=== PATIENT | female | born 1965 | race Caucasian/White ===

== ENCOUNTER → 2021-02-18 07:12 | Outpatient (CLI) | payer BC, SELFPAY ==
--- NOTE | ~2021-02-18 | MM_ITS ---
EXAMINATION: MM screening mahsa BI w jeremy HISTORY: Screening mammogram TECHNIQUE: Craniocaudal and mediolateral oblique 3-D tomosynthesis images were obtained and synthetic 2-D images were generated. CAD analysis was submitted and interpreted. COMPARISON: None, baseline BREAST PARENCHYMAL COMPOSITION: The breasts are heterogeneously dense, which may obscure small masses . FINDINGS: RIGHT BREAST: An asymmetry is present in the middle third of the slightly lower breast 3 cm from the nipple on the mediolateral oblique view. LEFT BREAST: An asymmetry is present in the posterior third of the slightly inner breast 4.5 cm from the craniocaudal view. IMPRESSION: 1. Bilateral breast asymmetries. 2. Additional mammographic views and possible breast ultrasound are recommended to evaluate for malig tamica and establish a baseline given that this is the first mammographic examination. BI-RADS Category 0: Incomplete: Needs additional imaging evaluation. Reviewed, dictated and finalized at location A. IMPRESSION: 1. Bilateral breast asymmetries. 2. Additional mammographic views and possible breast ultrasound are recommended to evaluate for malignancy and establish a baseline given that this is the fir st mammographic examination. BI-RADS Category 0: Incomplete: Needs additional imaging evaluation.
== END ==
DX: Z12.31 Encounter for screening mammogram for malignant neoplasm of breast (principal); R92.8 Other abnormal and inconclusive findings on diagnostic imaging of breast
CPT/HCPCS: 77063; 77067

== ENCOUNTER 2021-06-27 07:48 | Outpatient (CLI) | payer BC, SELFPAY ==
--- NOTE | ~2021-06-27 | MMUS_ITS ---
EXAMINATION: MM diagnostic mahsa BI w jeremy, US breast LT limited HISTORY: Bilateral breast asymmetries on screening mammogram TECHNIQUE: Additional 3-D tomosynthesis images of the breasts were performed and synthetic 2-D images were generated. CAD analysis was submitted and interpreted. High resolution limited left breast ultr asound was performed. COMPARISON: 02/18/2021 BREAST PARENCHYMAL COMPOSITION: The breasts are heterogeneously dense, which may obscure small masses . FINDINGS: MAMMOGRAPHIC FINDINGS: No persistent asymmetry is identified with spot compression of the right breast. There is a subtle pe rsistent asymmetry in the posterior third of the slightly inner breast 4.5 cm from the nipple on the craniocaudal view. ULTRASOUND: There is no evidence of focal abnormal solid or cystic mass in the vicinity of the mammographic findi ng in question in the left breast. IMPRESSION: 1. Probably benign left breast asymmetry. 2. Recommend 6 month follow-up left diagnostic mammogram and ultrasound. BI-RADS category 3, probably benign findings. Reviewed, dictated and finalized at location A. IMPRESSION: 1. Probably benign left breast asymmetry. 2. Recommend 6 month follow-up left diagnostic mammogram and ultrasound. BI-RADS category 3, probably benign findings.
== END 2021-06-27 07:49 ==
DX: R92.8 Other abnormal and inconclusive findings on diagnostic imaging of breast (principal)
CPT/HCPCS: 76642; 77062; 77066; G0279

== ENCOUNTER 2025-04-27 08:05 | Emergency (ER) | payer BC, SELFPAY ==
[2025-04-27 08:14] VITALS: BP 159/82; PULSE 83; RESP 18; TEMP 36.3; O2SAT 98
--- NOTE | 2025-04-27 08:21 | ED.URI ---
HPI - URI/Sore Throat General Chief Complaint: Upper Respiratory Infection Stated Complaint: Sinus Time Seen by Provider: 04/27/25 08:21 Source: patient Mode of arrival: ambulatory Limitations: no limitations History of Present Illness HPI Narrative: 60 yo F presents with c/o chest congestion, wheezing for 3 to 4 days. AFebrile. Not taking any OTC meds. States when i started wheezing thought i better get checked out. No CP or SOB. Stopped smoking cigarettes 1 yr ago. All systems reviewed and negative except as noted above. Related Data Home Medications ?Medication ?Instructions ?Recorded ?Confirmed ?Last Taken ?Type loperamide 2 mg capsule 2 mg PO Q6H PRN loose stool 02/28/24 09/01/24 Unknown History (Anti-Diarrheal (loperamide)) Allergies Allergy/AdvReac Type Severity Reaction Status Date / Time No Known Allergies Allergy Verified 04/27/25 08:20 [facility] Past Medical History Medical History Irritable bowel disease Anxiety Surgical History Surgical History Hx of tubal ligation Hx of cholecystectomy in her 30s Family History Family History Grandparent Carcinoma of colon Social History Social History Smoking status: Current some day smoker Additional smoking assessment comments: Smokes twice a week for the past year, previously close to 1ppd since age14 Alcohol intake: current Alcohol use details: about 2x week Substance use: current Substance use type: marijuana Living arrangements: with family Additional living arrangements comments: 3 generation household Occupation/Education: occupation Additional occupation/education comments: works from home 4 days per week, in office 1x week, [employer] Comments At time of signature, agree with nursing past medical, surgical, social and family history. There is no relevant family history pertinent to the presenting complaint. Exam Narrative: GENERAL: This is a well-nourished, well-developed patient, in no apparent distress. HEAD: normocephalic, atraumatic. EYES: PERRL. Sclera clear/white. Vision is grossly intact. EARS: External ears normal, auditory canals clear and without drainage, TMs normal without perforation. Hearing grossly intact. NOSE: External nose normal with no obvious nasal discharge, nares without redness, no rhinorrhea. THROAT: Mucous membranes moist, posterior pharynx clear. NECK: Neck supple, non-tender without lymphadenopathy, masses or thyromegaly. CARDIOVASCULAR: Regular rate and rhythm without murmurs, gallops, or rubs. RESPIRATORY: Mildly decreased to lower lung bright otherwise clear. Breath sounds equal bilaterally. No wheezes, rales, or rhonchi. SKIN: warm, Dry, intact with no suspicious lesions or rash, good texture and turgor. NEURO: awake, alert, and oriented to person, place and time. There were no obvious focal neurologic abnormalities. EXTREMITIES: No joint tenderness, effusion, or edema noted. Course Course Level of Care: Express Care Visit Vital Signs Vital signs: Vital Signs Temperature 36.3 C L 04/27/25 08:14 Pulse Rate 83 04/27/25 08:14 Respiratory Rate 18 04/27/25 08:14 Blood Pressure 159/82 H 04/27/25 08:14 Pulse Oximetry 98 04/27/25 08:14 Oxygen Delivery Room Air 04/27/25 08:14 Temperature 36.3 C L 04/27/25 08:14 Pulse Rate 83 04/27/25 08:14 Respiratory Rate 18 04/27/25 08:14 Blood Pressure 159/82 H 04/27/25 08:14 Pulse Oximetry 98 04/27/25 08:14 Oxygen Delivery Room Air 04/27/25 08:14 Reviewed MDM - URI/Sore Throat MDM Narrative Medical decision making narrative: patient is alert, nontoxic. Negative COVID and influenza test. Will treat patient with antibiotic due to patient's history, exam findings. Patient agrees with plan of care. Differential Diagnosis Differential diagnosis: Likely upper respiratory infection, sinusitis, viral infection, bronchitis and influenza Discharge Plan Discharge Clinical Impression: Acute bronchitis Qualifiers: Bronchitis organism: unspecified organism Qualified Code(s): J20.9 - Acute bronchitis, unspecified Patient Disposition: Home Condition: Stable Instructions: Acute Bronchitis (ED) Additional Instructions: take medications as prescribed. Continue taking [id number] cough medication. Take as directed on packaging. Drink plenty of water and rest. See your doctor if symptoms are not improving. If you have chest pain or shortness of breath go to the ER. Patient Language: Tunisian Prescriptions: New azithromycin 250 mg tablet See Rx Instructions .ROUTE .COMPLEX Qty: 6 0RF Rx Instructions: For 250 mg dose pack: take 500 mg today (day 1), then 250 mg for 4 days (days 2-5) methylprednisolone [Medrol (David)] 4 mg tablets,dose pack See Rx Instructions PO .COMPLEX Qty: 21 0RF Rx Instructions: orally per package directions No Action loperamide [Anti-Diarrheal (loperamide)] 2 mg capsule 2 mg PO Q6H PRN (Reason: loose stool) alprazolam [Xanax] 0.5 mg tablet 0.5 mg PO DAILY Qty: 60 1RF sertraline 100 mg tablet 100 mg PO DAILY Qty: 90 1RF Follow-up/Referrals: Marleni Garcia APRN [Primary Care Provider, [facility]] Time of Disposition: 08:28
== END 2025-04-27 08:34 | disposition home or self-care (01) ==
PROVIDERS: Emergency Provider Nurse Practitioner Family; PCP Nurse Practitioner Family
DX: J20.9 Acute bronchitis, unspecified (principal); Z87.891 Personal history of nicotine dependence; F12.90 Cannabis use, unspecified, uncomplicated
CPT/HCPCS: 99213; G0463